=== PATIENT | female | born 1980 | race Caucasian/White ===

== ENCOUNTER 2017-03-31 08:42 | Outpatient (CLI) | END 2017-03-31 12:20 | disposition home or self-care (01) ==

== ENCOUNTER 2017-04-01 12:00 | Inpatient (IN) | END 2017-04-04 15:15 | disposition home or self-care (01) | DRG 778 ==

== ENCOUNTER 2017-06-13 11:31 | Inpatient (IN) | END 2017-06-16 19:15 | disposition home or self-care (01) | DRG 766 ==